=== PATIENT | female | born 1950 | race Caucasian/White ===

== ENCOUNTER → 2019-01-14 11:49 | Outpatient (CLI) | payer OTHER, SELFPAY ==
[2019-01-14 12:29] LABS: Add Manual Diff / Slide Review NO; Basophils Absolute Auto 0 /uL (0-100); Basophils Percent Auto 0.6 % (0-2); Eosinophils Absolute Auto 100 /uL (0-450); Eosinophils Percent Auto 1.4 % (2-4); Hematocrit 41.6 % (36-46); Hemoglobin 13.8 g/dL (12.0-16.0); Lymphocytes Absolute Auto 800 /uL (1100-4500); Lymphocytes Percent Auto 21.6 % (25-40); Mean Corpuscular HGB Conc 33.3 % (30-36); Mean Corpuscular Hemoglobin 29.7 PG (26-34); Mean Corpuscular Volume 89.2 fL (80-100); Monocytes Absolute Auto 600 /uL (0-900); Monocytes Percent Auto 15.3 % (3-14); Neutrophils Absolute Auto 2400 /uL (1500-7000); Neutrophils Percent Auto 61.1 % (50-75); Platelet Count 202 X10^3/uL (150-400); Red Blood Cell Count 4.66 X10^6/uL (4.0-5.2); Red Cell Distribution Width 13.5 % (11.6-14.8); White Blood Cell Count 3.9 X10^3/uL (4.5-11.0)
[2019-01-14 12:51] LABS: Alanine Aminotransferase 27 IU/L (9-52); Albumin 4.5 g/dL (3.5-5.0); Albumin Globulin Ratio 1.7 (1.0-2.8); Alkaline Phosphatase 62 U/L (38-126); Aspartate Aminotransferase 21 IU/L (14-36); BUN Creatinine Ratio 21.3 (6-22); Bilirubin Total 0.5 mg/dL (0.2-1.3); Blood Urea Nitrogen 17 mg/dL (7-17); Calcium 9.4 mg/dL (8.4-10.2); Carbon Dioxide 25 mmol/L (22-32); Chloride 102 mmol/L (98-107); Cholesterol 202 mg/dL (140-199); Estimated Glomerular Filt Rate > 60.0 mL/min (>60); Globulin 2.7 g/dL (1.7-4.1); Glucose 90 mg/dL (80-110); HDL Cholesterol 85 mg/dL (40-60); HEMOLYSIS < 15 (0-50); LDL Cholesterol Calculated 104 mg/dL (<100); Potassium 4.6 mmol/L (3.4-5.1); Sodium 137 mmol/L (137-145); Total Protein 7.2 g/dL (6.3-8.2); Triglycerides 64 mg/dL (35-150)
[2019-01-14 13:22] LABS: TSH w/ Reflex to FT4 1.21 uIU/mL (0.47-4.68)
[2019-01-14 16:50] LABS: Vitamin D 25 Hydroxy (D3) 38.9 ng/mL (30.0-100.0)
== END ==
PROVIDERS: PCP Family Medicine; Visit Provider Family Medicine
DX: E55.9 Vitamin D deficiency, unspecified (principal); Z00.00 Encounter for general adult medical examination without abnormal findings
CPT/HCPCS: 36415; 80053; 80061; 82306; 84443; 85025

== ENCOUNTER → 2019-01-19 15:50 | Outpatient (CLI) | payer OTHER, SELFPAY ==
--- NOTE | 2019-01-19 15:54 | DI.RAD.S_ITS ---
PROCEDURE: XR CHEST 2V INDICATIONS: cough, egophony TECHNIQUE: 2 views of the chest were acquired. COMPARISON: None. FINDINGS: Surgical changes and devices: None. Lungs and pleura: Lungs are clear. No pleural effusions or pneumothorax. Mediastinum: Mediastinal contours are normal. Heart size is normal. Bones and chest wall: No suspicious bony abnormalities. Soft tissues appear unremarkable. IMPRESSION: No acute pulmonary process. Dictated by: Marya Monae M.D. on 01/19/2019 at 16:55 Approved by: Marya Monae M.D. on 01/19/2019 at 16:55
== END ==
PROVIDERS: PCP Family Medicine; Visit Provider Family Medicine
DX: R05 Cough (principal)
CPT/HCPCS: 71046

== ENCOUNTER → 2019-05-18 12:23 | Outpatient (CLI) | payer OTHER, SELFPAY ==
--- NOTE | 2019-05-18 12:26 | DI.RAD.S_ITS ---
PROCEDURE: XR SHOULDER RT MIN 2V INDICATIONS: R shoulder pain TECHNIQUE: 3 views of the shoulder were acquired. COMPARISON: [facility], CR, XR CHEST 2V, 01/19/2019, 16:02. FINDINGS: Bones: Mild right acromioclavicular joint and glenohumeral joint osteophyte is seen. Old fracture involving the shaft of right clavicle is noted with depression of distal clavicle and well-corticated margin. No gross acute fracture or dislocation.. No suspicious bony lesions. Visualized ribs appear intact. Soft tissues: No suspicious soft tissue calcifications. IMPRESSION: Old right mid clavicular shaft fracture. Mild shoulder joint osteoarthritis. No acute fracture or dislocation. Dictated by: Richar Clark M.D. on 05/18/2019 at 14:06 Approved by: Richar Clark M.D. on 05/18/2019 at 14:07
== END ==
PROVIDERS: PCP Family Medicine; Visit Provider Hospitalist
DX: M25.511 Pain in right shoulder (principal); M19.011 Primary osteoarthritis, right shoulder; Z87.81 Personal history of (healed) traumatic fracture
CPT/HCPCS: 73030

== ENCOUNTER → 2019-08-31 11:35 | Outpatient (CLI) | payer OTHER, SELFPAY ==
--- NOTE | 2019-08-31 11:37 | DI.MG.S_ITS ---
BILATERAL DIGITAL SCREENING MAMMOGRAM 3D/2D WITH CAD: 08/31/2019 CLINICAL: Routine screening. Comparison is made to exams dated: 08/13/2016 mammogram, 02/17/2012 mammogram, and 01/07/2011 mammogram - [facility]. There are scattered fibroglandular elements in both breasts. Current study was also evaluated with a Computer Aided Detection (CAD) system. There are benign calcifications in both breasts. No significant masses, calcifications, or other findings are seen in either breast. There has been no significant interval change. IMPRESSION: There is no mammographic evidence of malignancy. A 1 year screening mammogram is recommended. This exam was interpreted at Station ID: [id number]. NOTE: For mammograms, a report in lay terms will be sent to the patient. Approximately 15% of breast malignancies will not be visualized mammographically. In the management of a palpable breast mass, a negative mammogram must not discourage biopsy of a clinically suspicious lesion. Electronically Signed By: Baldev preston/khalida:08/31/2019 18:14:32 letter sent: Normal Exam ACR BI-RADS Category 2: Benign Finding(s) 3342F
== END ==
PROVIDERS: Family Provider Internal Medicine; PCP Internal Medicine; Visit Provider Family Medicine
DX: Z12.31 Encounter for screening mammogram for malignant neoplasm of breast (principal)
CPT/HCPCS: 77063; 77067

== ENCOUNTER → 2019-12-23 10:04 | Outpatient (CLI) | payer OTHER, SELFPAY ==
[2019-12-23 10:46] LABS: Add Manual Diff / Slide Review NO; Basophils Absolute Auto 0 /uL (0-100); Basophils Percent Auto 0.3 % (0-2); Eosinophils Absolute Auto 100 /uL (0-450); Eosinophils Percent Auto 1.5 % (2-4); Hematocrit 38.4 % (36-46); Hemoglobin 13.1 g/dL (12.0-16.0); Lymphocytes Absolute Auto 1100 /uL (1100-4500); Lymphocytes Percent Auto 30.2 % (25-40); Mean Corpuscular HGB Conc 34.2 % (30-36); Mean Corpuscular Hemoglobin 30.8 PG (26-34); Monocytes Absolute Auto 400 /uL (0-900); Monocytes Percent Auto 10.9 % (3-14); Neutrophils Absolute Auto 2000 /uL (1500-7000); Neutrophils Percent Auto 57.1 % (50-75); Platelet Count 225 X10^3/uL (150-400); Red Blood Cell Count 4.26 X10^6/uL (4.0-5.2); White Blood Cell Count 3.5 X10^3/uL (4.5-11.0)
[2019-12-23 11:06] LABS: Alanine Aminotransferase 14 IU/L (<35); Albumin 4.4 g/dL (3.5-5.0); Albumin Globulin Ratio 1.5 (1.0-2.8); Alkaline Phosphatase 57 U/L (38-126); Aspartate Aminotransferase 24 IU/L (14-36); Bilirubin Total 0.4 mg/dL (0.2-1.3); Blood Urea Nitrogen 20 mg/dL (7-17); Calcium 9.2 mg/dL (8.4-10.2); Carbon Dioxide 24 mmol/L (22-32); Chloride 102 mmol/L (98-107); Cholesterol 209 mg/dL (140-199); Estimated Glomerular Filt Rate > 60.0 mL/min (>60); Glucose 84 mg/dL (80-110); HDL Cholesterol 78 mg/dL (40-60); HEMOLYSIS < 15 (0-50); LDL Cholesterol Calculated 124 mg/dL (<100); Potassium 4.2 mmol/L (3.4-5.1); Sodium 135 mmol/L (137-145); Total Protein 7.4 g/dL (6.3-8.2); Triglycerides 33 mg/dL (35-150)
[2019-12-23 11:34] LABS: Vitamin D 25 Hydroxy (D3) 41.4 ng/mL (30.0-100.0)
[2019-12-23 11:50] LABS: TSH w/ Reflex to FT4 1.77 uIU/mL (0.47-4.68)
== END ==
PROVIDERS: PCP Internal Medicine; Visit Provider Internal Medicine
DX: Z00.00 Encounter for general adult medical examination without abnormal findings (principal); E55.9 Vitamin D deficiency, unspecified
CPT/HCPCS: 36415; 80053; 80061; 82306; 84443; 85025

== ENCOUNTER → 2020-02-16 08:10 | Outpatient (CLI) | payer OTHER, SELFPAY ==
--- NOTE | 2020-02-16 | DI.NM.S_ITS ---
PROCEDURE: NM BHUPENDRA PERF SPECT SINGLE STUDY Exercise myocardial perfusion SPECT with gated imaging and ejection fraction RADIOPHARMACEUTICAL: 24.3 mCi Tc-99m sestamibi IV at peak exercise. INDICATIONS: Palpitations TECHNIQUE: Radiopharmaceutical was injected at peak stress test. SPECT images were obtained, with perfusion images in short axis, horizontal long axis, and vertical long axis views. Gated images were reviewed using [employer] software. COMPARISON: None. CARDIAC STRESS: A standard Darryl treadmill exercise tolerance test was performed by the patient under the supervision of an attending staff. The patient exercised for 7 minutes and 1 seconds; functional aerobic impairment (SOLANGE) is -14%. Hemodynamic data: There is normal blood pressure and heart response to exercise. Patient achieved 90% of maximum predicted heart rate. Symptoms: Patient denied anginal chest pain during exercise. EKG: No diagnostic changes of ischemia; no ectopy. FINDINGS: Raw data: There is good labeling of myocardium by radiotracer. No significant motion artifacts. Mvxl-ti-mnsxw ratio is 0.33 (normal is less than 0.38 for sestamibi tracer, and less than 0.50 for thallium tracer). Left ventricular function: Gated images demonstrate normal left ventricle wall thickening. No segmental wall motion abnormalities. Left ventricle end diastolic volume is 100 mL. Left ventricle stress ejection fraction is 85%; normal values are above 45%. Myocardial perfusion: There is a mildly intense distal anterior wall defect on stress supine images that nearly resolve with stress prone images, suggesting breast attenuation. No ischemia or infarction. IMPRESSION: low risk, likely normal treadmill stress only nuclear study 1) No ischemia or infarction. There is a mildly intense distal anterior wall defect on stress supine images that nearly resolve with stress prone images, suggesting breast attenuation. 2) Normal left ventricular size, wall motion, and systolic function (EF post stress 85%). 3) No ECG evidence of ischemia or infarction. 4) No angina during the study. 5) Good exercise tolerance (10.1 METs, SOLANGE -14%). Target heart rate achieved. Appropriate BP response to exercise. 6) No prior nuclear stress test available for comparison. Dictated by: Araceli Flower MD on 02/16/2020 at 13:11 Approved by: Araceli Flower MD on 02/16/2020 at 13:15
--- NOTE | 2020-02-16 09:13 | PM.TREADMILL ---
Cardiac Stress Test Report Referral & Results Date Patient Seen: 02/16/20 Time Patient Seen: 09:14 Requesting provider: Shyann French Indication: palpitations Rest ECG: sinus rhythm Procedure Note: Standard Darryl protocol, 7:01, 7 METS Good exercise capacity, SOLANGE -14% Normal hemodynamic response to exercise No chest pain or anginal symptoms Resting ECG sinus rhythm, no significant ST changes, no ectopy Impression: Normal exercise stress test Nuclear images pending Please note: Actual ECG tracings can be found in the PACS system.
== END ==
PROVIDERS: PCP Internal Medicine; Referring Provider Internal Medicine; Visit Provider Internal Medicine
DX: R00.2 Palpitations (principal); R07.9 Chest pain, unspecified; R06.00 Dyspnea, unspecified
CPT/HCPCS: 78451; 93017; A9502

== ENCOUNTER → 2020-09-04 19:13 | Outpatient (ROUT) | payer OTHER, SELFPAY | PROVIDERS: PCP Internal Medicine; Visit Provider Internal Medicine | DX: R35.0 Frequency of micturition (principal) | CPT/HCPCS: 87086 ==

== ENCOUNTER → 2020-09-14 15:07 | Outpatient (ROUT) | payer OTHER, SELFPAY ==
[2020-09-14 15:30] LABS: Hematocrit 38.5 % (36-46); Hemoglobin 12.8 g/dL (12.0-16.0); Mean Corpuscular HGB Conc 33.3 % (30-36); Mean Corpuscular Hemoglobin 30.3 PG (26-34); Mean Corpuscular Volume 90.9 fL (80-100); Platelet Count 237 X10^3/uL (150-400); Red Blood Cell Count 4.24 X10^6/uL (4.0-5.2); Red Cell Distribution Width 13.6 % (11.6-14.8); White Blood Cell Count 3.5 X10^3/uL (4.5-11.0)
[2020-09-14 15:33] LABS: Alanine Aminotransferase 20 IU/L (<35); Albumin 4.1 g/dL (3.5-5.0); Albumin Globulin Ratio 1.4 (1.0-2.8); Alkaline Phosphatase 60 U/L (38-126); Aspartate Aminotransferase 27 IU/L (14-36); BUN Creatinine Ratio 23.5 (6-22); Bilirubin Total 0.5 mg/dL (0.2-1.3); Blood Urea Nitrogen 16 mg/dL (7-17); Carbon Dioxide 27 mmol/L (22-32); Chloride 103 mmol/L (98-107); Cholesterol 233 mg/dL (140-199); Estimated Glomerular Filt Rate > 60.0 mL/min (>60); Globulin 2.9 g/dL (1.7-4.1); Glucose 76 mg/dL (80-110); HDL Cholesterol 87 mg/dL (40-60); HEMOLYSIS < 15 (0-50); LDL Cholesterol Calculated 127 mg/dL (<100); Potassium 4.3 mmol/L (3.4-5.1); Sodium 135 mmol/L (137-145); Triglycerides 97 mg/dL (35-150)
[2020-09-14 16:03] LABS: TSH w/ Reflex to FT4 1.69 uIU/mL (0.47-4.68)
[2020-09-14 16:19] LABS: Neutrophils Absolute Manual 1925 /uL (3000-5900); Total Cells Counted 100
[2020-09-14 16:20] LABS: RBC Morphology Normal Morphology
== END ==
PROVIDERS: PCP Internal Medicine; Visit Provider Internal Medicine
DX: E78.5 Hyperlipidemia, unspecified (principal); D72.819 Decreased white blood cell count, unspecified; R10.31 Right lower quadrant pain; R00.2 Palpitations
CPT/HCPCS: 80053; 80061; 84443; 85025

== ENCOUNTER → 2020-10-31 11:40 | Outpatient (CLI) | payer OTHER, SELFPAY ==
--- NOTE | 2020-10-31 | DI.MG.S_ITS ---
BILATERAL DIGITAL SCREENING MAMMOGRAM 3D/2D WITH CAD: 10/31/2020 CLINICAL: Routine screening. Comparison is made to exams dated: 08/31/2019 mammogram, 08/13/2016 mammogram, and 02/17/2012 mammogram - [facility]. There are scattered fibroglandular elements in both breasts. Current study was also evaluated with a Computer Aided Detection (CAD) system. There are benign calcifications in both breasts. No significant masses, calcifications, or other findings are seen in either breast. There has been no significant interval change. IMPRESSION: BENIGN There is no mammographic evidence of malignancy. A 1 year screening mammogram is recommended. This exam was interpreted at Station ID: [id number]. NOTE: For mammograms, a report in lay terms will be sent to the patient. Approximately 15% of breast malignancies will not be visualized mammographically. In the management of a palpable breast mass, a negative mammogram must not discourage biopsy of a clinically suspicious lesion. Electronically Signed By: Baldev preston/khalida:10/31/2020 12:09:38 letter sent: Normal Exam ACR BI-RADS Category 2: Benign Finding(s) 3342F
== END ==
PROVIDERS: PCP Internal Medicine; Referring Provider Internal Medicine; Visit Provider Internal Medicine
DX: Z12.31 Encounter for screening mammogram for malignant neoplasm of breast (principal)
CPT/HCPCS: 77063; 77067

== ENCOUNTER → 2020-12-13 13:40 | Outpatient (CLI) | payer OTHER, SELFPAY ==
--- NOTE | 2021-01-09 09:06 | P.HOLT.S_ITS ---
Testing Projects Administrator Report Referral & Results Date Patient Seen: 12/13/20 Requesting provider: Shyann French Indication: Palpitations Duration of monitoring (days): 14 Diary information: There are no patient diary events or patient triggered events to review Data: Minimum heart rate identified was 43 beats per minute at 06:40 on 12/20/2020 Maximum sinus heart rate was 119 beats per minute at 16:52 on 12/13/2020 Maximum overall heart rate was 182 beats per minute at 11:21 on 12/14/2020 during a 4 beat run of SVT Less than 1% of identified beats rather ventricular or supraventricular in origin There 13 runs of SVT the fastest being a 4 beat run as above, the longest lasting 13 beats at a rate of 107 beats per minute which suggest more atrial tachycardia than true SVT Impression: Patient with minor dysrhythmias as above including very brief runs of SVT. No clear correlation between any dysrhythmia identified on this study and any symptoms patient might report, given lack of reported symptoms Clinical correlation suggested
== END ==
PROVIDERS: PCP Internal Medicine; Referring Provider Internal Medicine; Visit Provider Internal Medicine
DX: R00.2 Palpitations (principal)
CPT/HCPCS: 93246; 93248

== ENCOUNTER 2021-03-16 16:28 | Emergency (ER) | payer OTHER, SELFPAY ==
[2021-03-16 17:05] VITALS: BP 205/98; PULSE 94; RESP 18; TEMP 37.1; O2SAT 98; BMI 31.6
--- NOTE | 2021-03-16 17:17 | DI.RAD.S_ITS ---
PROCEDURE: XR ABDOMEN 1V INDICATIONS: CONSTIPATION TECHNIQUE: One view of the abdomen acquired. COMPARISON: None. FINDINGS: Surgical changes and devices: None. Bowel: There is nonobstructive bowel gas pattern. Stool is noted within the right colon with marked amount of stool causing dilation of the rectum. Soft tissues: No suspicious abdominal calcifications. Visualized solid organ contours appear normal in size. Bones: Diffuse degenerative changes of the spine and hips. No acute osseous abnormality. IMPRESSION: Rectal distension with large amount of stool. Mild stool burden proximally. Dictated by: Carlos Quinn D.O. on 03/16/2021 at 16:51 Approved by: Carlos Quinn D.O. on 03/16/2021 at 16:52
[2021-03-16 17:36] VITALS: BP 208/97
--- NOTE | 2021-03-16 17:52 | ED.ABDPAIN ---
HPI - Abdominal Pain General Chief Complaint: Abdominal Pain Stated Complaint: Fecal Impaction Time Seen by Provider: 03/16/21 17:39 Source: patient Mode of arrival: Ambulatory Limitations: no limitations History of Present Illness HPI narrative: Patient is a 70-year-old female who presents with constipation. She says that she in multiple mdza-oqm-kvajwvu medications today to have a bowel movement and now she feels like there is hard stool blocking it and she is having liquid stool. She actually tried to manually disimpact herself and was unsuccessful. She feels pressure there like she has to go she is not in any severe pain she does have hemorrhoids she denies any blood. No real abdominal pain. Related Data Previous Rx's Medication Instructions Recorded diazepam 5 mg tablet 5 mg PO DAILY PRN #30 tab 01/19/19 Allergies Allergy/AdvReac Type Severity Reaction Status Date / Time Penicillins Allergy Verified 03/16/21 17:05 Review of Systems Review of Systems Narrative: GENERAL: Denies chills, fatigue, malaise, fever, sweats, travel HEENT: Denies sinus pain, ear pain, sore throat, difficulty swallowing, neck pain RESPIRATORY: Denies dyspnea, cough, wheezing, hemoptysis, sputum. CARDIOVASCULAR: Denies chest pain, palpitations, orthopnea, edema GASTROINTESTINAL: See HPI : Denies dysuria, frequency, incontinence, hematuria, urinary retention, flank pain. MUSCULOSKELETAL: Denies weakness, joint pain, or bony pain SKIN: No rash, no erythema, no pruritus NEUROLOGIC: Denies weakness, dizziness, headache, numbness, change in speech, confusion PSYCHIATRIC: No concerning psychosocial issues. 12 point review of systems is negative except for those stated above and HPI Patient History Medical History (Updated 03/16/21 @ 18:14 by Carie Hill DO) Abnormal Pap smear of cervix Anemia (~1969) Chickenpox Chronic back pain Eczema (~1961) History of frequent headaches Measles Mumps Vertigo (~1988) Surgical History History of colposcopy Family History Father Age: 91 Vertigo Hypertension Colon cancer PUD (peptic ulcer disease) Alcoholism Mother Age: 89 Vertigo Hypotension Sister Vertigo Social History (Reviewed 03/16/21 @ 17:53 by HUMA Mantilla Smoking Status: Former smoker Smoking Status: Former smoker alcohol intake frequency: 0-2 drinks per day Substance Use Type: marijuana Exam Initial Vital Signs Initial Vital Signs: Vital Signs Temperature 98.7 F 03/16/21 17:05 Pulse Rate 94 H 03/16/21 17:05 Respiratory Rate 18 03/16/21 17:05 Blood Pressure 205/98 H 03/16/21 17:05 Pulse Oximetry 98 03/16/21 17:05 GENERAL: Well-appearing, well-nourished and in no acute distress. CARDIOVASCULAR: peripheral pulses in tact, cap refill <2 sec RESPIRATORY: No respiratory distress, speaks in full sentences without difficulty RECTAL: THE PATIENT DOES HAVE HEMORRHOIDS THERE IS HARD STOOL BUT IT IS AT THE VERY TIP OF MY FINGER AND I CANNOT GET IT. SHE DOES HAVE LOOSE NONBLOODY DIARRHEA EXTREMITIES: Normal range of motion, no clubbing or edema. Neurovascularly intact NEUROLOGICAL: Cranial nerves II through XII grossly intact. Normal gait and speech. SKIN: Warm, dry, no petechiae, no rashes or lesions. Course Orders Ordered: ED Orders 03/16/21 17:17 XR abdomen 1V Stat Vital Signs Vital signs: Vital Signs - 8 hr 03/16/21 17:05 03/16/21 17:36 Temperature 98.7 F Pulse Rate 94 H Respiratory Rate 18 Blood Pressure 205/98 H 208/97 H Pulse Oximetry 98 MDM - Abdominal Pain Imaging Data Abdominal x-ray: Radiologist's Impression: PROCEDURE: XR ABDOMEN 1V INDICATIONS: CONSTIPATION TECHNIQUE: One view of the abdomen acquired. COMPARISON: None. FINDINGS: Surgical changes and devices: None. Bowel: There is nonobstructive bowel gas pattern. Stool is noted within the right colon with marked amount of stool causing dilation of the rectum. Soft tissues: No suspicious abdominal calcifications. Visualized solid organ contours appear normal in size. Bones: Diffuse degenerative changes of the spine and hips. No acute osseous abnormality. IMPRESSION: Rectal distension with large amount of stool. Mild stool burden proximally. Dictated by: Carlos Quinn D.O. on 03/16/2021 at 16:51 MDM Narrative Medical decision making narrative: Patient had a bowel movement in the ED and feels significantly better. Discharge Plan Departure Patient Disposition: Home Clinical Impression: Constipation Instructions: DI for Constipation Activity Restrictions/Additional Instructions: *You have been diagnosed with constipation *What to do: Recommend taking something to soften stools daily such as Dulcolax or Metamucil also be sure to drink lots of water *Continue to take medications as directed *Follow up with your primary care provider in 2-3 days *Return to ER if you should have increasing pain, nausea vomiting or fever or any new, worsening or concerning symptoms Prescriptions: No Action diazepam 5 mg tablet 5 mg PO DAILY PRN (Reason: muscle spasm) Qty: 30 RF: 0 Referrals: Phuong Mccann PA-C [Primary Care Provider] -
[2021-03-16 18:24] VITALS: BP 180/79; PULSE 75; RESP 18; O2SAT 99
== END 2021-03-16 18:24 | disposition home or self-care (01) ==
PROVIDERS: Emergency Provider Emergency Medicine; PCP Student in an Organized Health Care Education/Training Program
DX: K59.00 Constipation, unspecified (principal)
CPT/HCPCS: 74018; 99283

== ENCOUNTER → 2021-09-16 10:05 | Outpatient (CLI) | payer OTHER, SELFPAY ==
--- NOTE | 2021-09-16 | DI.RAD.S_ITS ---
PROCEDURE: XR DEXA AXIAL SKELETON INDICATIONS: unspec post menopausal syndrome COMPARISON: [facility], , DEXA AXIAL SKELETON, 09/02/2017, 14:46. FINDINGS: This blank DEXA report has been sent in error by the PACS system. The correct and complete report will be forthcoming in 1-2 days. Thank you for your patience and understanding. Dictated by: Irma Manuel MD, PhD on 09/16/2021 at 14:46 Approved by: Irma Manuel MD, PhD on 09/16/2021 at 14:46
== END ==
PROVIDERS: PCP Student in an Organized Health Care Education/Training Program; Referring Provider Student in an Organized Health Care Education/Training Program; Visit Provider Student in an Organized Health Care Education/Training Program
DX: M85.852 Other specified disorders of bone density and structure, left thigh; Z78.0 Asymptomatic menopausal state; Z87.891 Personal history of nicotine dependence
CPT/HCPCS: 77080

== ENCOUNTER → 2022-04-21 15:35 | Outpatient (CLI) | payer OTHER, SELFPAY ==
--- NOTE | 2022-04-21 | DI.RAD.S_ITS ---
PROCEDURE: XR SOFT TISSUE NECK INDICATIONS: NECK PAIN POST FALL TECHNIQUE: 2 views of the neck were acquired. COMPARISON: None. FINDINGS: Airway: The airway appears patent. Soft tissues: Prevertebral soft tissues are normal in thickness. The epiglottis and aryepiglottic folds appear normal. No soft tissue gas. Bones: No suspicious bony lesions. Visualized cervical spine is normally aligned. Loss of lordosis which could be related to muscle spasm, rigidity or simply positional. Moderate disc height loss at the C5-C6 level. Mild multilevel mid and lower cervical spine facet joint arthropathy. IMPRESSION: 1. Loss of lordosis and multilevel spondylosis. 2. No acute neck soft tissue abnormality seen. Dictated by: Felipe Edwards [facility] Interpreted: Mode Campbell MD on 04/21/2022 at 16:27 Transcribed by: CATHY on 04/21/2022 at 16:29 Approved by: Mode Campbell M.D. on 04/21/2022 at 16:45
== END ==
PROVIDERS: PCP Student in an Organized Health Care Education/Training Program; Referring Provider Student in an Organized Health Care Education/Training Program; Visit Provider Student in an Organized Health Care Education/Training Program
DX: M54.2 Cervicalgia (principal); M47.812 Spondylosis without myelopathy or radiculopathy, cervical region
CPT/HCPCS: 70360

== ENCOUNTER → 2022-12-19 09:49 | Outpatient (CLI) | payer OTHER, SELFPAY ==
--- NOTE | 2022-12-19 | DI.MG.S_ITS ---
BILATERAL DIGITAL SCREENING MAMMOGRAM 3D/2D WITH CAD: 12/19/2022 CLINICAL: Routine screening. Comparison is made to exams dated: 10/31/2020 mammogram, 08/31/2019 mammogram, and 08/13/2016 mammogram - [facility]. There are scattered areas of fibroglandular density in both breasts (category b / 25%-50% glandular tissue). Current study was also evaluated with a Computer Aided Detection (CAD) system. There are benign calcifications in both breasts. No significant masses, calcifications, or other findings are seen in either breast. There has been no significant interval change. IMPRESSION: BENIGN There is no mammographic evidence of malignancy. A 1 year screening mammogram is recommended. Based on the Tyrer Cuzick model (a risk assessment model) the patient's lifetime risk is 3.8% and her 10 year risk is 2.4%. According to the ACR, ACS, and NCCN guidelines, an annual breast MRI exam along with mammogram is recommended if the patient's lifetime risk is 20% or greater. This exam was interpreted at Station ID: [id number]. NOTE: For mammograms, a report in lay terms will be sent to the patient. Approximately 15% of breast malignancies will not be visualized mammographically. In the management of a palpable breast mass, a negative mammogram must not discourage biopsy of a clinically suspicious lesion. Electronically Signed By: Norm grier/khalida:12/19/2022 12:00:00 letter sent: Normal Exam ACR BI-RADS Category 2: Benign Finding(s) 3342F
== END ==
PROVIDERS: PCP Student in an Organized Health Care Education/Training Program; Referring Provider Student in an Organized Health Care Education/Training Program; Visit Provider Student in an Organized Health Care Education/Training Program
DX: Z12.31 Encounter for screening mammogram for malignant neoplasm of breast (principal)
CPT/HCPCS: 77063; 77067

== ENCOUNTER → 2024-04-04 11:12 | Outpatient (CLI) | payer MEDICARE, SELFPAY ==
--- NOTE | 2024-04-04 11:13 | DI.MG.S_ITS ---
BILATERAL DIGITAL SCREENING MAMMOGRAM 3D/2D WITH CAD: 04/04/2024 CLINICAL: Routine screening. Comparison is made to exams dated: 12/19/2022 mammogram, 10/31/2020 mammogram, and 08/31/2019 mammogram - [facility]. There are scattered areas of fibroglandular density in both breasts (category b / 25%-50% glandular tissue). Current study was also evaluated with a Computer Aided Detection (CAD) system. There are benign calcifications in both breasts. No significant masses, calcifications, or other findings are seen in either breast. There has been no significant interval change. IMPRESSION: BENIGN There is no mammographic evidence of malignancy. A 1 year screening mammogram is recommended. Based on the Tyrer Cuzick model (a risk assessment model) the patient's lifetime risk is 3.6% and her 10 year risk is 2.5%. According to the ACR, ACS, and NCCN guidelines, an annual breast MRI exam along with mammogram is recommended if the patient's lifetime risk is 20% or greater. This exam was interpreted at Station ID: [id number]. NOTE: For mammograms, a report in lay terms will be sent to the patient. Approximately 15% of breast malignancies will not be visualized mammographically. In the management of a palpable breast mass, a negative mammogram must not discourage biopsy of a clinically suspicious lesion. Electronically Signed By: Sarah thornton/khalida:04/04/2024 15:53:13 letter sent: Normal Exam ACR BI-RADS Category 2: Benign Finding(s) 3342F
== END ==
PROVIDERS: PCP Student in an Organized Health Care Education/Training Program; Referring Provider Student in an Organized Health Care Education/Training Program; Visit Provider Student in an Organized Health Care Education/Training Program
DX: Z12.31 Encounter for screening mammogram for malignant neoplasm of breast (principal); R92.323 Mammographic fibroglandular density, bilateral breasts
CPT/HCPCS: 77063; 77067

== ENCOUNTER → 2025-04-14 09:28 | Outpatient (CLI) | payer MEDICARE, SELFPAY ==
[2025-04-14 10:23] LABS: Add Manual Diff / Slide Review NO; Basophils Absolute Auto 0 /uL (0-100); Basophils Percent Auto 0.4 % (0-2); Eosinophils Absolute Auto 100 /uL (0-450); Eosinophils Percent Auto 2.7 % (2-4); Hematocrit 38.7 % (36-46); Hemoglobin 13.3 g/dL (12.0-16.0); Lymphocytes Absolute Auto 1100 /uL (1100-4500); Lymphocytes Percent Auto 31.8 % (25-40); Mean Corpuscular HGB Conc 34.5 % (30-36); Mean Corpuscular Hemoglobin 31.4 PG (26-34); Monocytes Absolute Auto 400 /uL (0-900); Monocytes Percent Auto 12.5 % (3-14); Neutrophils Absolute Auto 1800 /uL (1500-7000); Neutrophils Percent Auto 52.6 % (50-75); Platelet Count 199 X10^3/uL (150-400); Red Blood Cell Count 4.25 X10^6/uL (4.0-5.2); Red Cell Distribution Width 13.8 % (11.6-14.8); White Blood Cell Count 3.4 X10^3/uL (4.5-11.0)
[2025-04-14 10:31] LABS: Alanine Aminotransferase 17 IU/L (<35); Albumin 4.6 g/dL (3.5-5.0); Albumin Globulin Ratio 1.7 (1.0-2.8); Alkaline Phosphatase 81 U/L (38-126); Aspartate Aminotransferase 28 IU/L (14-36); BUN Creatinine Ratio 20.6 (6-22); Bilirubin Total 0.8 mg/dL (0.2-1.3); Blood Urea Nitrogen 13 mg/dL (7-17); Calcium 9.4 mg/dL (8.4-10.2); Carbon Dioxide 23 mmol/L (22-32); Chloride 100 mmol/L (98-107); Cholesterol 225 mg/dL (140-199); Estimated Glomerular Filt Rate > 60 mL/min (>60); Globulin 2.7 g/dL (1.7-4.1); Glucose 91 mg/dL (70-99); HDL Cholesterol 103 mg/dL (40-60); HEMOLYSIS < 15 (0-50); LDL Cholesterol Calculated 112 mg/dL (<100); Potassium 4.5 mmol/L (3.4-5.1); Sodium 133 mmol/L (137-145); Total Protein 7.3 g/dL (6.3-8.2); Triglycerides 52 mg/dL (35-150)
[2025-04-14 10:43] LABS: Vitamin D 25 Hydroxy (D3) 48.4 ng/mL (30.0-100.0)
[2025-04-14 10:59] LABS: Thyroid Stimulating Hormone 1.88 uIU/mL (0.47-4.68)
[2025-04-14 11:03] LABS: Ferritin 63 ng/mL (11-264)
== END ==
PROVIDERS: PCP Family Medicine; Referring Provider Family Medicine; Visit Provider Family Medicine
DX: F43.22 Adjustment disorder with anxiety (principal); L65.9 Nonscarring hair loss, unspecified; E78.5 Hyperlipidemia, unspecified; G47.00 Insomnia, unspecified; Z00.00 Encounter for general adult medical examination without abnormal findings
CPT/HCPCS: 36415; 80053; 80061; 82306; 82728; 84443; 85025

== ENCOUNTER → 2025-04-17 11:10 | Outpatient (CLI) | payer MEDICARE, SELFPAY ==
--- NOTE | 2025-04-17 11:11 | DI.RAD.S_ITS ---
PROCEDURE: XR DEXA AXIAL SKELETON INDICATIONS: Osteoporosis screening COMPARISON: [facility], CR, XR DEXA AXIAL SKELETON, 09/16/2021, 10:47. FINDINGS: Lumbar Spine: Bone mineral density 0.876 g/cm2, T score -1 6, compared to -1.4. Left Femoral Neck: Bone mineral density 0.618 g/cm2, T score -2.1, unchanged. Left Hip: Bone mineral density 0.716 g/cm2, T score -1.9, compared to -1.7. Fracture Risk Calculation (when applicable): 10-year fracture risk of a major osteoporotic fracture 20 percent and of a hip fracture 8.7 percent. This is compared to 19.3% and 4.4% (T score greater or equal to -1.0 to: NORMAL) (T score from -1.1 to -2.4: OSTEOPENIA) (T score less than or equal to -2.5: OSTEOPOROSIS) IMPRESSION: Mild progressive bone mineral density loss in lumbar spine and left hip [id number] osteopenia. Moderate to severe osteopenia in the left femoral neck is stable. Follow-up guidelines as follows: Osteoporosis: Consider a repeat DEXA and Vertebral Fracture Assessment (VFA) exam in 2 years or sooner if medically necessary, to reassess this patient's status. Osteopenia: Consider a repeat DEXA in 2-3 years to reassess this patient's status, or if there is a new clinical indication. Normal: Consider a repeat DEXA in 5 years or sooner, or if there is a new clinical indication. All treatment decisions require clinical judgment and consideration of individual patient factors, including patient preferences, comorbidities, previous drug use, risk factors not captured in the FRAX model (e.g., frailty, falls, vitamin D deficiency, increased bone turnover, interval significant decline in bone density ) and possible under- or over-estimation of fracture risk by FRAX. In addition, the NOF Guide recommends that FDA-approved medical therapies be considered in postmenopausal women and men age >= 50 years with a: * Hip or vertebral (clinical or morphometric) fracture * T-score of <=-2.5 at the spine or hip * Ten-year fracture probability by FRAX of >= 3% for hip fracture or >=20% for major osteoporotic fracture. Dictated by: Marya Monae M.D. on 04/17/2025 at 18:02 Approved by: Marya Monae M.D. on 04/17/2025 at 18:04
== END ==
PROVIDERS: PCP Family Medicine; Referring Provider Family Medicine; Visit Provider Family Medicine
DX: M85.89 Other specified disorders of bone density and structure, multiple sites (principal); Z78.0 Asymptomatic menopausal state
CPT/HCPCS: 77080

== ENCOUNTER → 2025-05-01 15:33 | Outpatient (CLI) | payer MEDICARE, SELFPAY ==
--- NOTE | 2025-05-01 15:34 | DI.MG.S_ITS ---
MM screening mammo BI: 05/01/2025. BI-RADS: 2 CLINICAL: 74-year old female for bilateral screening mammogram. Tyrer-Cuzick lifetime risk of 2.3%. No personal or first-degree family history of breast cancer. PRIOR EXAMS 04/04/2024, 12/19/2022, 10/31/2020, 08/31/2019, 08/13/2016. MAMMOGRAPHY TECHNIQUE: 2D and 3D (tomosynthesis) digital mammographic views obtained, with additional images as needed for full coverage. Current study was also evaluated with a Computer Aided Detection (CAD) system. DENSITY B. There are scattered areas of fibroglandular density. MAMMOGRAPHY FINDINGS Bilateral: Benign-appearing calcifications noted. There are no suspicious masses, calcifications, or other findings in the breast. No significant change from comparison. IMPRESSION: * No evidence of malignancy with benign findings. RECOMMENDATIONS Bilateral * Annual screening mammography. OVERALL ASSESSMENT CATEGORY BI-RADS-2: Benign. The [employer] recommends annual screening mammography beginning at age 40 for women with average risk of breast cancer. ELECTRONICALLY SIGNED: Sarah Hawthorne M.D. on 05/02/2025 at 03:55:14 PM PT Interpreting Station ID: [id number]
== END ==
LOC: MAMMO 15:33
PROVIDERS: PCP Family Medicine; Referring Provider Family Medicine; Visit Provider Family Medicine
DX: Z12.31 Encounter for screening mammogram for malignant neoplasm of breast (principal)
CPT/HCPCS: 77063; 77067

== ENCOUNTER → 2025-06-06 13:14 | Outpatient (CLI) | payer MEDICARE, SELFPAY ==
--- NOTE | 2025-06-06 13:16 | DI.RAD.S_ITS ---
PROCEDURE: XR LUMBAR SPINE 2-3V INDICATIONS: eval for OA lower lumbar, SI TECHNIQUE: 3 views of the lumbar spine were acquired. COMPARISON: None. FINDINGS: Bones: 5 mqe-myo-gkvrnmh vertebrae are present. There is 8-9 mm retrolisthesis of L1 on L2 and L2 on L3. Loss of disc height, degenerative endplate changes and bilateral facet arthrosis throughout lumbar spine more notably at L3-4 through L5-S1 levels. Chronic appearing mild anterior wedge compression deformity involving superior endplate of L1. Chronic appearing superior endplate compression deformity at L4 is also seen with up to 20 percent loss of L4 vertebral body height. No acute vertebral body compression fractures. No suspicious bony lesions. Soft tissues: Overlying bowel gas pattern is normal. No suspicious soft tissue calcifications. IMPRESSION: No acute vertebral body compression fracture. Chronic appearing anterior wedge compression deformity involving superior endplate of L1 and L4. Grade 1 retrolisthesis at L1-2 and L2-3 level. Snyu-zw-sozdzydi degenerative disc disease throughout lumbar spine as above. Dictated by: Richar Clark M.D. on 06/06/2025 at 15:08 Approved by: Richar Clark M.D. on 06/06/2025 at 15:17
== END ==
LOC: RAD 13:15
PROVIDERS: PCP Family Medicine; Referring Provider Chiropractor; Visit Provider Chiropractor
DX: M43.8X6 Other specified deforming dorsopathies, lumbar region (principal); M43.16 Spondylolisthesis, lumbar region; M47.816 Spondylosis without myelopathy or radiculopathy, lumbar region; M47.817 Spondylosis without myelopathy or radiculopathy, lumbosacral region; M51.369 Other intervertebral disc degeneration, lumbar region without mention of lumbar back pain or lower extremity pain; M51.379 Other intervertebral disc degeneration, lumbosacral region without mention of lumbar back pain or lower extremity pain; M54.50 Low back pain, unspecified
CPT/HCPCS: 72100